=== PATIENT | female | born 1990 | race Caucasian/White ===

== ENCOUNTER → 2018-03-16 | Outpatient (CLI) | payer OTHER ==
[~2018-03-16] MED LIST: ADIPEX-P37.5 MG PO; BENTYL 10 MG CA10 M1 PO; ONDANSETRON HCL4 M2 PO; WELLBUTRIN SR150 MG PO; XANAX 0.5 MG0.5 MG PO
== END ==
LOC: CAT 15:07
DX: K85.10 Biliary acute pancreatitis without necrosis or infection (principal)

== ENCOUNTER 2018-03-17 08:18 | Inpatient (IN) | payer OTHER ==
[~2018-03-17] VITALS: Ht 162.6 cm; Wt 78.0 kg
--- NOTE | ~2018-03-17 | PATH ---
[facility] [address] [place] [address] PATHOLOGY RPT PROCEDURE Name: NICOLE NICOLASARY Room #: 456-P DIS IN M.R.#: [id number] Admission: 03/17/18 Date of : 88 Discharge: 03/19/18 Report #: [id number] Path Case #: [id number] [facility] Accession Number: [id number] . 01 Material submitted: . PART A: GALLBLADDER PART B: APPENDIX . 01 Clinical history: . Symptomatic cholelithiasis, appendicitis, UTI, elevated LFTs, abdominal pain, nausea. . 02 Diagnosis: A. Gallbladder, cholecystectomy: - Mild chronic cholecystitis. - Cholesterolosis. - Cholelithiasis. . B. Appendix, appendectomy: - Mild chronic inflammation. - Fibrous obliteration of the tip. (IUV:db; 03/20/2018) LBQ/03/20/2018 . 02 Electronically signed: . Yolanda Cooper MD, Pathologist NPI- [id number] . 01 Gross description: . A. The specimen is received in formalin, labeled "Ju Nicolas, gallbladder" and consists of a previously opened green-luciano and shiny gallbladder measuring 7.6 x 4.8 x 0.6 cm. The mucosa is green with yellow highlights and an average wall thickness of 0.2 cm. A single yellow-green and smooth calculus is present measuring 1.8 x 1.3 cm. No polyps or mass lesions are identified. [employer] sections are submitted in A1. . B. The specimen is received in formalin, labeled "Ju Nicolas, appendix" and consists of an appendix measuring 6.3 cm in length and ranging from 0.4-0.7 cm in diameter. The attached mesoappendix measures 5.6 x 2.1 cm. The serosa is louis with fibrous adhesions covering over 50% of the specimen. Sectioning reveals a dilated lumen containing green material near the proximal margin which becomes pinpoint at the distal tip. No discrete fecaliths or lesions identified. [employer] sections are submitted in B1. (SDY; 03/19/2018) SYU/SYU . [address] [place] [address] PATHOLOGY RPT PROCEDURE Name: JU NICOLAS Room #: 456-P DIS IN M.R.#: [id number] Admission: 03/17/18 Date of : 88 Discharge: 03/19/18 Report #: [id number] Path Case #: [id number] Pathologist provided ICD-10: K80.10, K36, K38.8 . 02 CPT . 452492, [id number] Performed at: [address], [place] [id number] MD Guillermo Arambula MD Phone: [phone] Performed at: [address] [id number] MD Yolanda Cooper MD Phone: [phone]
[2018-03-17 08:25] VITALS: BP 130/94
[2018-03-17 08:46] LABS: ABSOLUTE NEUTROPHILS 6.8 thou/uL (1.4-8.2); BASOPHILS 0.3 % (0.0-2.0); EOSINOPHILS 1.5 % (0.0-3.0); HEMATOCRIT 45.3 % (37.0-47.0); HEMOGLOBIN 16.1 gm/dL (12.0-15.0); LYMPHOCYTES 18.1 % (24.0-44.0); MCH 33.3 pg (26.0-34.0); MCHC 35.6 g/dL (28.0-37.0); MCV 93.3 fL (80.0-100.0); MONOCYTES 7.8 % (1.0-8.0); PLATELET COUNT 235 thou/uL (150-400); POLYS 72.3 % (36.0-66.0); RBC 4.85 mil/uL (4.20-5.00); RDW 12.5 % (10.5-14.5); WBC 9.4 thou/uL (4.0-11.0)
[2018-03-17 08:50] LABS: URINE BILIRUBIN 2+ (Negative); URINE BLOOD NEGATIVE (Negative); URINE CLARITY CLOUDY; URINE COLOR YELLOW; URINE GLUCOSE-RANDOM* TRACE (Negative); URINE KETONES TRACE (Negative); URINE LEUKOCYTES 2+ (Negative); URINE NITRITE POSITIVE (Negative); URINE PROTEIN (DIPSTICK) TRACE (Negative); URINE SPECIFIC GRAVITY 1.025 (1.005-1.035)
[2018-03-17] MEDS ORDERED: BENTYL 10 MG CA10 M1 PO (08:50)
[2018-03-17] MEDS ORDERED: ONDANSETRON HCL4 M2 PO (08:51)
[2018-03-17] MEDS ORDERED: WELLBUTRIN SR150 MG PO (08:51)
[2018-03-17] MEDS ORDERED: XANAX 0.5 MG0.5 MG PO (08:51)
[2018-03-17] MEDS ORDERED: ADIPEX-P37.5 MG PO (08:52)
[2018-03-17 08:53] LABS: ICTOTEST (BILI CONFIRMATORY) Positive (Negative)
[2018-03-17 08:54] LABS: CALCIUM 8.7 mg/dL (8.5-10.1); CREATININE 0.8 mg/dL (0.6-1.0); POTASSIUM 4.1 mmol/L (3.5-5.1)
[2018-03-17 08:59] LABS: BACTERIA >30 Many /HPF (None Seen); SQUAMOUS >10 Many /LPF (0-3)
[2018-03-17 09:00] LABS: ALBUMIN 4.1 g/dL (3.4-5.0); DIRECT BILIRUBIN 0.8 mg/dL (<0.1-0.3); TOTAL BILIRUBIN 1.8 mg/dL (<0.1-1.0); TOTAL PROTEIN 7.9 g/dL (6.4-8.2)
[2018-03-17 09:00] LABS: CASTS None Seen /LPF (None Seen); CRYSTALS None Seen /LPF (None Seen); URINE RBC 3-10 Few /HPF (0-2)
[2018-03-17 09:53] LABS: ANISOCYTOSIS 1+; PLATELET ESTIMATE NORMAL
[2018-03-17 10:21] VITALS: BP 114/80
[2018-03-17 16:24] VITALS: BP 119/78
[2018-03-17 16:55] VITALS: BP 119/78
[2018-03-17 19:00] VITALS: BP 117/76
[2018-03-18] VITALS (11 sets, daily range): BP systolic 106–139; BP diastolic 62–76
[2018-03-18 05:54] LABS: BASOPHILS 0.4 % (0.0-2.0); EOSINOPHILS 2.8 % (0.0-3.0); HEMATOCRIT 39.2 % (37.0-47.0); LYMPHOCYTES 35.8 % (24.0-44.0); MCH 33.8 pg (26.0-34.0); MCHC 35.9 g/dL (28.0-37.0); MCV 94.4 fL (80.0-100.0); MONOCYTES 8.1 % (1.0-8.0); PLATELET COUNT 221 thou/uL (150-400); POLYS 52.9 % (36.0-66.0); RBC 4.16 mil/uL (4.20-5.00); RDW 12.7 % (10.5-14.5); WBC 5.7 thou/uL (4.0-11.0)
[2018-03-18 06:04] LABS: HEMOGLOBIN 14.1 gm/dL (12.0-15.0)
[2018-03-18 06:10] LABS: CALCIUM 8.1 mg/dL (8.5-10.1); CREATININE 0.8 mg/dL (0.6-1.0); MAGNESIUM 1.8 mg/dL (1.8-2.4); POTASSIUM 3.9 mmol/L (3.5-5.1)
[2018-03-18 08:20] LABS: ALBUMIN 3.3 g/dL (3.4-5.0); DIRECT BILIRUBIN 0.5 mg/dL (<0.1-0.3); TOTAL BILIRUBIN 1.2 mg/dL (<0.1-1.0); TOTAL PROTEIN 6.5 g/dL (6.4-8.2)
[2018-03-19 05:01] VITALS: BP 112/75
[2018-03-19 05:42] LABS: ABSOLUTE NEUTROPHILS 6.4 thou/uL (1.4-8.2); BASOPHILS 0.1 % (0.0-2.0); EOSINOPHILS 0.1 % (0.0-3.0); HEMATOCRIT 35.3 % (37.0-47.0); HEMOGLOBIN 12.9 gm/dL (12.0-15.0); LYMPHOCYTES 17.3 % (24.0-44.0); MCH 33.7 pg (26.0-34.0); MCHC 36.7 g/dL (28.0-37.0); MCV 91.8 fL (80.0-100.0); MONOCYTES 5.3 % (1.0-8.0); PLATELET COUNT 241 thou/uL (150-400); POLYS 77.2 % (36.0-66.0); RBC 3.84 mil/uL (4.20-5.00); WBC 8.3 thou/uL (4.0-11.0)
[2018-03-19 05:53] LABS: ALBUMIN 3.1 g/dL (3.4-5.0); CALCIUM 7.9 mg/dL (8.5-10.1); CREATININE 0.7 mg/dL (0.6-1.0); MAGNESIUM 1.6 mg/dL (1.8-2.4); POTASSIUM 4.1 mmol/L (3.5-5.1); TOTAL BILIRUBIN 0.9 mg/dL (<0.1-1.0); TOTAL PROTEIN 6.1 g/dL (6.4-8.2)
[2018-03-19 08:00] VITALS: BP 105/66
[2018-03-19] MEDS ORDERED: ONDANSETRON HCL4 M2 PO (09:05)
[2018-03-19] MEDS ORDERED: NORCO 5-325 TA1 EACH PO (09:05)
[2018-03-19] MEDS ORDERED: KEFLEX500 M1 PO (10:52)
[2018-03-19 10:57] VITALS: BP 105/66
== END 2018-03-19 11:51 | disposition home or self-care (01) | DRG 418 ==
LOC: ER 08:18 → 4W 10:12 → EROBS 10:12 → 4W 16:12 → ENTRNSPT 03-19 11:40 → EDTRNSPTSTS 03-19 11:43 → 4W 03-19 11:51
PROVIDERS: Emergency Medicine; Nurse Practitioner; Surgery
PROC: 0WUF47Z Supplement Abdominal Wall with Autologous Tissue Substitute, Percutaneous Endoscopic Approach (ICD-10-PCS; principal; 2018-03-18)
PROC: BF121ZZ Fluoroscopy of Gallbladder using Low Osmolar Contrast (ICD-10-PCS; principal; 2018-03-18)
PROC: 0FT44ZZ Resection of Gallbladder, Percutaneous Endoscopic Approach (ICD-10-PCS; principal; 2018-03-18)
PROC: 0DTJ4ZZ Resection of Appendix, Percutaneous Endoscopic Approach (ICD-10-PCS; principal; 2018-03-18)
DX: K80.10 Calculus of gallbladder with chronic cholecystitis without obstruction (principal); N39.0 Urinary tract infection, site not specified; K35.80 Unspecified acute appendicitis; N12 Tubulo-interstitial nephritis, not specified as acute or chronic; K42.9 Umbilical hernia without obstruction or gangrene; F32.9 Major depressive disorder, single episode, unspecified; K52.9 Noninfective gastroenteritis and colitis, unspecified; F41.9 Anxiety disorder, unspecified; Z79.899 Other long term (current) drug therapy
CPT/HCPCS: 10040; 50010; 50101; 50249; 50411; 50555; 50558; 50739; 50740; 50962; 51489; 51975; 52265; 52266; 53307; 53310; 54022; 54118; 55245; 55317; 56462; 56525; 56526; 62110; 62900; 70005

== ENCOUNTER → 2020-10-24 | Outpatient (CLI) | payer OTHER ==
[~2020-10-24] MED LIST changes: +KEFLEX500 M1 PO; +NORCO 5-325 TA1 EACH PO
== END ==
LOC: LAB 10:23
PROVIDERS: ATTEND Nurse Practitioner
DX: U07.1 COVID-19 (principal); R53.83 Other fatigue; R43.8 Other disturbances of smell and taste